=== PATIENT | male | born 1960 | race Caucasian/White ===

== ENCOUNTER 2017-02-27 12:41 | Inpatient (IN) | payer OTHER ==
--- NOTE | ~2017-02-27 | HP ---
History And Physical [place] [id number] [facility] [place]. [address] NAME: DIOR BYNUM : 58 STATUS : ADM IN [facility]#: [id number] AGE: 56 ADM/REG DATE : 02/27/17 MR#: [id number] REPORT SERV DATE: 02/27/17 DICTATED BY: RAFA BOOTH DATE: 02/27/17 REPORT STATUS : Draft TRANSCRIBED BY: MODL DATE: 02/27/17 DATE OF ADMISSION: 02/27/2017 CHIEF COMPLAINT: Weakness and mild confusion. HISTORY OF PRESENT ILLNESS: The patient is a 56-year-old male with past medical history of significant alcohol use up to 36 cans of beer daily who also has history of hypertension, type 2 diabetes non-insulin dependent, who presents after recent discharge from [facility] having medication changes but noted to have progressive and profound weakness requiring help and assistance getting to bed last night and today has still just generalized weakness that has been constant, still currently present. No pain quality, no radiating symptoms. Does have occasional shortness of breath with exertion, but no gross nausea or vomiting. No fever, chills, or diarrhea, has been taking medications and doing as instructed. He has also been trying to decrease his alcohol intake as instructed. There is nothing worsening or relieving the symptoms. Symptoms are still currently present. Symptoms of weakness have been quite pronounced over the last four days with shortness of breath and does report increased swelling in lower extremities. REVIEW OF SYSTEMS: For additional 10-point review of systems; GENERAL: No fevers or chills. EYES: No eye pain but has had mild visual changes. ENT: No sore throat or congestion. NEURO: Does have mild shaking and has also reported mild hallucinations. No headache. SKIN: No rash or bruising. RESPIRATORY: Does have shortness of breath. No cough. CV: No chest pain or palpitations. GI: No nausea or vomiting. : No dysuria, hematuria. MUSCULOSKELETAL: Does have swelling. No myalgias. ENDOCRINE: Does have fatigue, but no polyuria. HEME: No bleeding or bruising. IMMUNOLOGIC: No rhinorrhea. PSYCH: No anxiety but mild confusion although the patient is aware of the hallucinations. PAST MEDICAL HISTORY: Diabetes, non-insulin dependent, navel hernia, hypertension, hyperlipidemia, slip disc. SURGICAL HISTORY: Hernia on the right and appendectomy. FAMILY HISTORY: Stomach and breast cancer mother's side, diabetes. SOCIAL HISTORY: Does use smokeless tobacco. Alcohol down to 12 beers a day as high as 36 beers a day, has been slowly cutting it down. He started drinking at age of 13. ALLERGIES: SULFA. History And Physical [place] [address] [place]. [address] NAME: DIOR BYNUM : 58 STATUS : ADM IN [facility]#: [id number] AGE: 56 ADM/REG DATE : 02/27/17 MR#: [id number] REPORT SERV DATE: 02/27/17 DICTATED BY: RAFA BOOTH DATE: 02/27/17 REPORT STATUS : Draft TRANSCRIBED BY: ANNIKA DATE: 02/27/17 PHYSICAL EXAMINATION: VITAL SIGNS: Blood pressure 119/74, temperature 98.1, pulse 103, respirations 15, and O2 sats 98% on room air. GENERAL: No acute distress but appears generalized weak. Appears definitely older than stated age. EYES: No scleral icterus. EOMI. No nystagmus. ENT: Nares patent. Tongue midline. Moist mucous membranes. RESPIRATORY: Clear to auscultation. No wheezes. CV: Regular Rate. No rubs. Does have bilateral pedal edema. Cap refill less than 2 seconds. GI: Does have central obesity with mild caput medusae very faint, does have umbilical hernia. Mild splenomegaly. Tympanic abdomen with positive fluid wave. : Deferred. MUSCULOSKELETAL: Moves all extremities x4 but does have notable weakness. SKIN: Warm and dry. LYMPH: Does have 2+ bilateral edema. HEME: No bleeding or bruising. 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 CIWA score approximately 16. PSYCH: Calm, pleasant but at times subtle anxiety noted. ALLERGIES: SULFA. MEDICATIONS: Amitriptyline, Bumex, B12, Flexeril, Breo Ellipta, folic acid, Prinivil, lovastatin, Mag-Ox, metformin, Roxicodone, Protonix, Lyrica, Aldactone. DATA: EKG; rate of 101, QTc 459, sinus tachycardia. LABORATORY DATA: CMP: Procalcitonin 0.15. Sodium 135, potassium 4.8, chloride 97, bicarb 25, BUN creatinine 47 and 1.94, glucose 148, calcium 10.1, albumin 3.5, myoglobin 397, CPK 1327, TSH 2.680. Urine drug screen; positive tricyclics, is on amitriptyline. Negative Tylenol, negative alcohol, negative salicylates, lactate 2.5. Urinalysis negative. CBC: WBC 4.8, H and H 12.2 and 34.4, platelets 102, INR 1.2. Ammonia 125. ABG: pH 7.47, pCO2 of 30, pO2 of 75, bicarb 21.6. ASSESSMENT AND PLAN: 1. Rhabdomyolysis. 2. Hepatic encephalopathy, on arrival. 3. Alcohol abuse. 4. Acute kidney injury. 5. Dehydration. 6. Lactic acid elevation. 7. Debility. History And Physical [address] [address] NAME: DIOR BYNUM : 58 STATUS : ADM IN [facility]#: [id number] AGE: 56 ADM/REG DATE : 02/27/17 MR#: [id number] REPORT SERV DATE: 02/27/17 DICTATED BY: RAFA BOOTH DATE: 02/27/17 REPORT STATUS : Draft TRANSCRIBED BY: ANNIKA DATE: 02/27/17 8. Healed rib fractures. PLAN: 1. For rhabdomyolysis, hold diuretics, nephrotoxins, and statins. IV fluids gently. The patient does have what appears to be hepatic congestion or hepatic disease. Hold statins at this time. Monitor CPK, will need physical therapy once out of acute episodes. 2. Hepatic encephalopathy. He does have elevated ammonia to 120 plus, mild asterixis, positive splenomegaly, lactulose discussed with the patient. We will monitor ammonia. 3. Alcohol abuse with DT risk factors, CIWA score 16. DT protocol initiated. Monitor. He does have mild asterixis with hallucinations although the patient aware of these hallucinations and only subtle anxiety. 4. ENRICO. IV fluids. Check lytes. 5. Dehydration, IV fluids. Hold diuretics. 6. Lactic acid. Monitor serially, hold metformin. 7. Debility. PT when appropriate. 8. Healed rib fractures seen on prior x-rays at recent hospitalization. Guarded prognosis including possible escalation to ICU if needed due to multitude of risk factors as above. Discussed with the patient and family who are agreeable and aware of high risk case. DDN/MODL Rafa Booth MD / [id number] CC: Xuan De Dios M.D.
--- NOTE | ~2017-02-27 | DS ---
Discharge Summary [place] [id number] [facility] [place]. [address] NAME: DIOR BYNUM : 58 STATUS : DIS IN PAT#: [id number] AGE: 56 ADM/REG DATE : 02/27/17 MR#: [id number] REPORT SERV DATE: 03/06/17 DICTATED BY: CARLOS MCGINNIS DATE: 03/06/17 REPORT STATUS : Draft TRANSCRIBED BY: MODKailyn DATE: 03/06/17 ADMISSION DATE: 02/27/2017 DISCHARGE DATE: 03/06/2017 ADDENDUM DISCHARGE SUMMARY ADDENDUM Addendum to discharge summary: The patient was supposed to be transferred to [facility]. The patient was waiting for approval from [facility]. Unfortunately, there were some delays regarding his approval. Reassessment of the patient's physical therapy was made. The patient was able to mobilize with a walker at least around through the nurses station without any difficulty/minimal assist. With improvement of his mobility, the patient will be sent home and instructed to use his walker. ROD/ANNIKA Carlos Mcginnis MD / [id number] CC: Carlos Mcginnis MD
--- NOTE | ~2017-02-27 | DS ---
Discharge Summary [facility] [address] [place]. [address] NAME: DIOR BYNUM : 58 STATUS : ADM IN [facility]#: [id number] AGE: 56 ADM/REG DATE : 02/27/17 MR#: [id number] REPORT SERV DATE: 03/05/17 DICTATED BY: CARLOS MCGINNIS DATE: 03/04/17 REPORT STATUS : Draft TRANSCRIBED BY: MODL DATE: 03/04/17 ADMISSION DATE: 02/27/2017 DISCHARGE DATE: 03/04/2017 PROCEDURES DONE: 03/03/2017, chest x-ray: Mild elevation of right hemidiaphragm, appearing slightly more pronounced than prior exam. Likely due to differences in the level of inspiration. There is mild right basilar atelectasis. Otherwise, no acute cardiopulmonary abnormality detected. REASON FOR ADMISSION: Weakness and mild confusion. HISTORY OF HOSPITAL STAY: A 56-year-old white male with past medical history of alcohol abuse with 36 cans of beer daily, hypertension, diabetes type 2, presenting with weakness and mild confusion, unknown duration. The patient was recently at [facility] having progressive weakness. The patient was admitted for further evaluation of the patient's confusion and weakness. It turned out the patient was having hepatic encephalopathy as well as rhabdomyolysis. The patient does admit to having alcohol use. The patient has been advised to quit. Family was at bedside, has been very encouraging and supportive to the patient regarding alcohol use. More importantly, the hepatic encephalopathy also improved with the patient receiving lactulose. The patient had much improved mentation. Since the ammonia level initially was at 87 as well, we decreased down to normal to 29. The patient has been encouraged to continue the lactulose in order to decrease ammonia levels. In addition, the patient's rhabdomyolysis also was much improved. The patient was getting enough IV fluids. The patient's CK is down to normal on discharge at 117. More importantly, from Physical Therapy side, the patient will be sent to [facility] in order to get physical rehab. The patient has been very optimistic that hopefully he can participate more by having more strength to his legs. DISPOSITION: The patient is feeling fine, no complaint. ACTIVITY: As tolerated. DIET: Diabetic. INSTRUCTION UPON DISCHARGE: The patient will follow up with PMD within two to three weeks' time. MEDICATIONS UPON DISCHARGE: 1. Amitriptyline 25 mg p.o. b.i.d. 2. Vitamin B12 at 2500 mcg sublingual daily. 3. Flexeril 10 mg p.o. t.i.d. 4. NovoLog sliding scale level 3. 5. Lactulose 30 mL p.o. b.i.d. 6. Magnesium oxide 400 mg p.o. b.i.d. 7. Protonix 40 mg p.o. daily. 8. Lyrica 75 mg p.o. t.i.d. Discharge Summary [address] [address] NAME: DIOR BYNUM : 58 STATUS : ADM IN [facility]#: [id number] AGE: 56 ADM/REG DATE : 02/27/17 MR#: [id number] REPORT SERV DATE: 03/05/17 DICTATED BY: CARLOS MCGINNIS DATE: 03/04/17 REPORT STATUS : Draft TRANSCRIBED BY: ANNIKA DATE: 03/04/17 9. Roxicodone 5 mg p.o. t.i.d. 10.Aldactone 100 mg p.o. daily. 11.Lisinopril 5 mg p.o. daily. 12.Mevacor 100 mg p.o. q.h.s. 13.Bumex 1 mg p.o. b.i.d. 14.Folic acid 1 mg p.o. daily. 15.Breo Ellipta 100/25 one puff inhaled daily. DIAGNOSES UPON DISCHARGE: 1. Weakness and mild confusion secondary to hepatic encephalopathy. 2. Hepatic encephalopathy secondary to alcohol abuse. 3. Alcohol abuse. 4. Hypertension. 5. Rhabdomyolysis. 6. Diabetes type 2. FBJ/MODL Carlos Mcginnis MD / [id number] CC: Carlos Mcginnis MD
[~2017-02-27 12:41] MED LIST: AMIT25 PO; BREO ELLIPTA INH; BUM1 PO; CYANO1000T SL; FLEX PO; FOLIC PO; GLUCOPHAGE1000 MG PO; L20 PO; LYRICA75 PO; MAGOX4 PO; MEVACOR10 MG PO; MOBIC15 MG PO; NEUR100 PO; OXYCOD PO; PRIN10 PO; PROTONIX PO; SPIR100 PO
[2017-02-27 13:07] LABS: BE (BASE EXCESS) -1.1 MEQ/L (0 +/- 2.5); CARBOXYHEMOGLOBIN 2.1 % (0-3); HCO3 (ACTUAL BICARBONATE) 21.6 MEQ/L (23-27); HEMOBLOGIN CONTENT 12.7 G/DL (14-18); INSTRUMENT SERIAL # 8087; METHEMOGLOBIN 0.3 % (0-3); O2 CONTENT 16.6 VOL% (18-24); PCO2 (CO2 TENSION) 30 MMHG (35-45); PO2 (O2 TENSION) 75 MMHG (79-93); SAMPLE Arterial; pH 7.47 (7.37-7.43)
[2017-02-27 13:08] LABS: ALLENS TEST Pos
[2017-02-27 13:12] LABS: BASOPHILS 0.4 %; BASOPHILS ABSOLUTE 0.02 10/3/uL (0.0-0.16); EOSINOPHILS 1.9 %; EOSINOPHILS ABSOLUTE 0.09 10/3/uL (0.0-0.53); ER CBC TAT 0 Hrs 08 Mins; HEMATOCRIT 34.4 % (40.0-51.0); HEMOGLOBIN 12.2 g/dL (13.6-17.8); LYMPHOCYTES 28.7 %; LYMPHOCYTES ABSOLUTE 1.39 10/3/uL (0.67-4.30); MEAN CORPUSCULAR HEMOGLOB 31.9 pg (26.0-34.0); MEAN CORPUSCULAR VOLUME 89.8 fL (80-100); MEAN PLATELET VOLUME 9.7 fL (9.2-13.0); MONOCYTES 16.7 %; MONOCYTES ABSOLUTE 0.81 10/3/uL (0.21-1.20); NEUTROPHILS 52.3 %; NEUTROPHILS ABSOLUTE 2.53 10/3/uL (2.02-8.40); PLATELET COUNT 102 10/3/uL (150-400); RBC DISTRIBUTION WIDTH 13.8 % (12.0-16.0); RED CELL COUNT 3.83 10/6/uL (4.7-6.1); WHITE BLOOD CELLS 4.8 10/3/uL (4.5-10.5)
[2017-02-27 13:13] LABS: MANUAL DIFF NO %; MEAN CORPUS HGB CONC 35.5 g/dL (32.0-36.0)
[2017-02-27 13:21] LABS: INTERNATIONAL NORMAL RATI 1.2 UNITS (-); PARTIAL THROMBO TIME 35.3 SEC (22.5-37.2)
[2017-02-27 13:27] LABS: ASCORBIC ACID (UR NOT ORDER) NEG (NEG); BILIRUBIN, URINE NEGATIVE (NEG); ER URINALYSIS TAT 0 Hrs 05 Mins; KETONE, URINE NEGATIVE (NEG); LEUKOCYTE ESTERASE(NOT OR NEG (NEG); NITRITE (URINE) NEG (NEG); WBC (NOT ORDERED) (RFLEX) 1 (0-5)
[2017-02-27 13:31] LABS: LACTATE 2.5 MMOL/L (0.3-2.4)
[2017-02-27 13:33] LABS: ACETAMINOPHEN LEVEL (TYLENOL) < 2.0 MCG/ML (10.0-20.0); ALCOHOL < 10 MG/DL (0); SALICYLATE < 1.7 MG/DL (-)
[2017-02-27 13:38] LABS: ALKALINE PHOSPHATASE 110 U/L (45-117); CHLORIDE, SERUM 97 MMOL/L (96-112); CO2 (CARBON DIOXIDE) 25 MMOL/L (24-34); CPK (IF ELEVATED MB BANDS) 1327 U/L (0-200); GLUCOSE, SERUM 148 MG/DL (60-99); SGOT(AST) 90 U/L (5-40); SGPT(ALT) 40 U/L (5-65); SODIUM, SERUM 135 MMOL/L (135-148); TOTAL BILIRUBIN 1.4 MG/DL (0-1.2)
[2017-02-27 13:41] LABS: AMPHETAMINES (NOT ORD) NEG (NEG); BARBITURATES (NOT ORDERED NEG (NEG); BENZODIAZEPINES (NOT ORD) NEG (NEG); CANNABINOIDS (THC) NEG (NEG); COCAINE (NOT ORDERED) NEG (NEG); OPIATES NEG (NEG); PHENCYCLIDINE(PCP) NEG (NEG); TRICYCLICS POS (NEG)
[2017-02-27 13:44] LABS: A/G RATIO 0.7 (0.7-1.9); ALBUMIN 3.5 G/DL (3.5-5.0); BUN (BLOOD UREA NITROGEN) 47 MG/DL (6-23); CALCIUM, SERUM 10.1 MG/DL (8.5-10.4); CREATININE 1.94 MG/DL (0.70-1.30); GFR AFRICAN AMERICAN 43 ML/MIN (>=60); GFR NON AFRICAN AMERICAN 37 ML/MIN (>=60); GLOBULIN 4.9 G/DL (2.5-4.1); POTASSIUM, SERUM 4.8 MMOL/L (3.5-5.3); TOTAL PROTEIN 8.4 G/DL (6.0-8.5)
[2017-02-27 14:08] LABS: CK-MB 3.1 NG/ML
[2017-02-27] MEDS ORDERED: LYRICA75 PO (14:26)
[2017-02-27] MEDS ORDERED: PROTONIX PO (14:26)
[2017-02-27] MEDS ORDERED: SPIR100 PO (14:26)
[2017-02-27] MEDS ORDERED: OXYCOD PO (14:26)
[2017-02-27] MEDS ORDERED: PRIN5 PO (14:26)
[2017-02-27] MEDS ORDERED: GLUCOPHAGE1000 MG PO (14:27)
[2017-02-27] MEDS ORDERED: MEVACOR10 MG PO (14:27)
[2017-02-27] MEDS ORDERED: AMIT25 PO (14:27)
[2017-02-27] MEDS ORDERED: MAGOX4 PO (14:27)
[2017-02-27] MEDS ORDERED: FOLIC PO (14:28)
[2017-02-27] MEDS ORDERED: FLEX PO (14:28)
[2017-02-27] MEDS ORDERED: VITAMIN B-122500 MCG SL (14:28)
[2017-02-27] MEDS ORDERED: BREO ELLIPTA INH (14:28)
[2017-02-27] MEDS ORDERED: BUM1 PO (14:28)
[2017-02-27 14:51] LABS: PROCALCITONIN 0.15 ng/mL (<0.5)
[2017-02-27 15:09] LABS: MYOGLOBIN, SERUM 397 NG/ML (0-85)
[2017-02-27 17:14] LABS: TROPONIN I <0.02 NG/ML (<0.05)
[2017-02-28 05:45] LABS: BASOPHILS 0.5 %; BASOPHILS ABSOLUTE 0.02 10/3/uL (0.0-0.16); EOSINOPHILS 3.4 %; EOSINOPHILS ABSOLUTE 0.13 10/3/uL (0.0-0.53); HEMOGLOBIN 10.6 g/dL (13.6-17.8); IMMATURE GRANULOCYTES 0.3 %; IMMATURE GRANULOCYTES ABSOLUTE 0.01 10/3/uL (0.0-0.11); LYMPHOCYTES 36.2 %; LYMPHOCYTES ABSOLUTE 1.37 10/3/uL (0.67-4.30); MEAN CORPUS HGB CONC 34.9 g/dL (32.0-36.0); MEAN CORPUSCULAR HEMOGLOB 31.3 pg (26.0-34.0); MEAN CORPUSCULAR VOLUME 89.7 fL (80-100); MEAN PLATELET VOLUME 9.6 fL (9.2-13.0); MONOCYTES 17.2 %; MONOCYTES ABSOLUTE 0.65 10/3/uL (0.21-1.20); NEUTROPHILS 42.4 %; PLATELET COUNT 94 10/3/uL (150-400); RBC DISTRIBUTION WIDTH 13.9 % (12.0-16.0); RED CELL COUNT 3.39 10/6/uL (4.7-6.1); WHITE BLOOD CELLS 3.8 10/3/uL (4.5-10.5)
[2017-02-28 05:53] LABS: HEMATOCRIT 30.4 % (40.0-51.0); MANUAL DIFF NO %
[2017-02-28 05:57] LABS: A/G RATIO 0.7 (0.7-1.9); ALBUMIN 3.1 G/DL (3.5-5.0); CHLORIDE, SERUM 103 MMOL/L (96-112); CO2 (CARBON DIOXIDE) 24 MMOL/L (24-34); CPK 730 U/L (0-200); GLOBULIN 4.4 G/DL (2.5-4.1); GLUCOSE, SERUM 128 MG/DL (60-99); MYOGLOBIN, SERUM 168 NG/ML (0-85); POTASSIUM, SERUM 4.3 MMOL/L (3.5-5.3); SGOT(AST) 71 U/L (5-40); SGPT(ALT) 35 U/L (5-65); SODIUM, SERUM 139 MMOL/L (135-148); TOTAL BILIRUBIN 1.5 MG/DL (0-1.2); TOTAL PROTEIN 7.5 G/DL (6.0-8.5); TROPONIN I <0.02 NG/ML (<0.05)
[2017-02-28 06:00] LABS: ALKALINE PHOSPHATASE 93 U/L (45-117); BUN (BLOOD UREA NITROGEN) 34 MG/DL (6-23); CALCIUM, SERUM 9.1 MG/DL (8.5-10.4); CREATININE 1.41 MG/DL (0.70-1.30); GFR AFRICAN AMERICAN 64 ML/MIN (>=60); GFR NON AFRICAN AMERICAN 55 ML/MIN (>=60)
[2017-03-01 06:28] LABS: BASOPHILS 0.7 %; BASOPHILS ABSOLUTE 0.02 10/3/uL (0.0-0.16); EOSINOPHILS 4.4 %; EOSINOPHILS ABSOLUTE 0.13 10/3/uL (0.0-0.53); HEMATOCRIT 32.4 % (40.0-51.0); HEMOGLOBIN 11.2 g/dL (13.6-17.8); IMMATURE GRANULOCYTES 0.3 %; IMMATURE GRANULOCYTES ABSOLUTE 0.01 10/3/uL (0.0-0.11); LYMPHOCYTES 35.7 %; LYMPHOCYTES ABSOLUTE 1.06 10/3/uL (0.67-4.30); MANUAL DIFF NO %; MEAN CORPUS HGB CONC 34.6 g/dL (32.0-36.0); MEAN CORPUSCULAR HEMOGLOB 31.5 pg (26.0-34.0); MEAN CORPUSCULAR VOLUME 91.3 fL (80-100); MEAN PLATELET VOLUME 9.7 fL (9.2-13.0); MONOCYTES 19.2 %; MONOCYTES ABSOLUTE 0.57 10/3/uL (0.21-1.20); NEUTROPHILS 39.7 %; NEUTROPHILS ABSOLUTE 1.18 10/3/uL (2.02-8.40); PLATELET COUNT 100 10/3/uL (150-400); RBC DISTRIBUTION WIDTH 13.5 % (12.0-16.0); RED CELL COUNT 3.55 10/6/uL (4.7-6.1)
[2017-03-01 06:30] LABS: A/G RATIO 0.7 (0.7-1.9); ALBUMIN 3.1 G/DL (3.5-5.0); ALKALINE PHOSPHATASE 116 U/L (45-117); BUN (BLOOD UREA NITROGEN) 20 MG/DL (6-23); CALCIUM, SERUM 9.1 MG/DL (8.5-10.4); CHLORIDE, SERUM 106 MMOL/L (96-112); CO2 (CARBON DIOXIDE) 24 MMOL/L (24-34); CPK 360 U/L (0-200); CREATININE 1.18 MG/DL (0.70-1.30); GFR AFRICAN AMERICAN 79 ML/MIN (>=60); GFR NON AFRICAN AMERICAN 68 ML/MIN (>=60); GLOBULIN 4.7 G/DL (2.5-4.1); GLUCOSE, SERUM 140 MG/DL (60-99); POTASSIUM, SERUM 4.5 MMOL/L (3.5-5.3); SGOT(AST) 72 U/L (5-40); SGPT(ALT) 38 U/L (5-65); SODIUM, SERUM 140 MMOL/L (135-148); TOTAL BILIRUBIN 0.9 MG/DL (0-1.2); TOTAL PROTEIN 7.8 G/DL (6.0-8.5)
[2017-03-02 06:48] LABS: BASOPHILS 0.3 %; BASOPHILS ABSOLUTE 0.01 10/3/uL (0.0-0.16); EOSINOPHILS 3.4 %; HEMATOCRIT 32.9 % (40.0-51.0); HEMOGLOBIN 11.3 g/dL (13.6-17.8); LYMPHOCYTES 38.5 %; LYMPHOCYTES ABSOLUTE 1.12 10/3/uL (0.67-4.30); MEAN CORPUS HGB CONC 34.3 g/dL (32.0-36.0); MEAN CORPUSCULAR VOLUME 90.4 fL (80-100); MEAN PLATELET VOLUME 9.6 fL (9.2-13.0); MONOCYTES 12.7 %; MONOCYTES ABSOLUTE 0.37 10/3/uL (0.21-1.20); NEUTROPHILS 45.1 %; NEUTROPHILS ABSOLUTE 1.31 10/3/uL (2.02-8.40); PLATELET COUNT 98 10/3/uL (150-400); RBC DISTRIBUTION WIDTH 13.5 % (12.0-16.0); RED CELL COUNT 3.64 10/6/uL (4.7-6.1); WHITE BLOOD CELLS 2.9 10/3/uL (4.5-10.5)
[2017-03-02 06:49] LABS: MANUAL DIFF NO %
[2017-03-02 07:02] LABS: A/G RATIO 0.6 (0.7-1.9); ALKALINE PHOSPHATASE 123 U/L (45-117); BUN (BLOOD UREA NITROGEN) 19 MG/DL (6-23); CALCIUM, SERUM 9.2 MG/DL (8.5-10.4); CHLORIDE, SERUM 109 MMOL/L (96-112); CO2 (CARBON DIOXIDE) 23 MMOL/L (24-34); CREATININE 1.21 MG/DL (0.70-1.30); GFR AFRICAN AMERICAN 77 ML/MIN (>=60); GFR NON AFRICAN AMERICAN 66 ML/MIN (>=60); GLOBULIN 4.8 G/DL (2.5-4.1); GLUCOSE, SERUM 177 MG/DL (60-99); POTASSIUM, SERUM 4.2 MMOL/L (3.5-5.3); SGOT(AST) 72 U/L (5-40); SGPT(ALT) 40 U/L (5-65); SODIUM, SERUM 141 MMOL/L (135-148); TOTAL BILIRUBIN 0.8 MG/DL (0-1.2); TOTAL PROTEIN 7.8 G/DL (6.0-8.5)
[2017-03-03 05:33] LABS: BASOPHILS 0.3 %; BASOPHILS ABSOLUTE 0.01 10/3/uL (0.0-0.16); EOSINOPHILS 3.2 %; EOSINOPHILS ABSOLUTE 0.12 10/3/uL (0.0-0.53); HEMATOCRIT 33.1 % (40.0-51.0); HEMOGLOBIN 11.3 g/dL (13.6-17.8); IMMATURE GRANULOCYTES 0.3 %; IMMATURE GRANULOCYTES ABSOLUTE 0.01 10/3/uL (0.0-0.11); LYMPHOCYTES 25.3 %; LYMPHOCYTES ABSOLUTE 0.94 10/3/uL (0.67-4.30); MEAN CORPUS HGB CONC 34.1 g/dL (32.0-36.0); MEAN CORPUSCULAR HEMOGLOB 31.1 pg (26.0-34.0); MEAN CORPUSCULAR VOLUME 91.2 fL (80-100); MEAN PLATELET VOLUME 9.2 fL (9.2-13.0); MONOCYTES 9.7 %; MONOCYTES ABSOLUTE 0.36 10/3/uL (0.21-1.20); NEUTROPHILS 61.2 %; NEUTROPHILS ABSOLUTE 2.27 10/3/uL (2.02-8.40); PLATELET COUNT 101 10/3/uL (150-400); RBC DISTRIBUTION WIDTH 13.6 % (12.0-16.0); RED CELL COUNT 3.63 10/6/uL (4.7-6.1); WHITE BLOOD CELLS 3.7 10/3/uL (4.5-10.5)
[2017-03-03 05:37] LABS: MANUAL DIFF NO %
[2017-03-03 05:47] LABS: A/G RATIO 0.6 (0.7-1.9); BUN (BLOOD UREA NITROGEN) 16 MG/DL (6-23); CALCIUM, SERUM 9.3 MG/DL (8.5-10.4); CHLORIDE, SERUM 110 MMOL/L (96-112); CO2 (CARBON DIOXIDE) 22 MMOL/L (24-34); CREATININE 1.04 MG/DL (0.70-1.30); GFR AFRICAN AMERICAN 92 ML/MIN (>=60); GFR NON AFRICAN AMERICAN 79 ML/MIN (>=60); GLOBULIN 5.1 G/DL (2.5-4.1); GLUCOSE, SERUM 171 MG/DL (60-99); PHOSPHORUS, SERUM 3.3 MG/DL (2.5-4.5); POTASSIUM, SERUM 4.6 MMOL/L (3.5-5.3); SGOT(AST) 69 U/L (5-40); SGPT(ALT) 43 U/L (5-65); SODIUM, SERUM 141 MMOL/L (135-148); TOTAL BILIRUBIN 0.6 MG/DL (0-1.2); TOTAL PROTEIN 8.1 G/DL (6.0-8.5)
[2017-03-03 05:49] LABS: ALKALINE PHOSPHATASE 140 U/L (45-117); CPK 117 U/L (0-200)
[2017-03-04 07:09] LABS: BASOPHILS 0.2 %; BASOPHILS ABSOLUTE 0.01 10/3/uL (0.0-0.16); EOSINOPHILS 2.8 %; EOSINOPHILS ABSOLUTE 0.16 10/3/uL (0.0-0.53); HEMATOCRIT 32.8 % (40.0-51.0); HEMOGLOBIN 11.4 g/dL (13.6-17.8); IMMATURE GRANULOCYTES 0.2 %; IMMATURE GRANULOCYTES ABSOLUTE 0.01 10/3/uL (0.0-0.11); LYMPHOCYTES 17.4 %; LYMPHOCYTES ABSOLUTE 0.99 10/3/uL (0.67-4.30); MEAN CORPUS HGB CONC 34.8 g/dL (32.0-36.0); MEAN CORPUSCULAR HEMOGLOB 31.9 pg (26.0-34.0); MEAN CORPUSCULAR VOLUME 91.9 fL (80-100); MEAN PLATELET VOLUME 9.5 fL (9.2-13.0); MONOCYTES 11.4 %; MONOCYTES ABSOLUTE 0.65 10/3/uL (0.21-1.20); NEUTROPHILS ABSOLUTE 3.86 10/3/uL (2.02-8.40); PLATELET COUNT 98 10/3/uL (150-400); RBC DISTRIBUTION WIDTH 13.9 % (12.0-16.0); RED CELL COUNT 3.57 10/6/uL (4.7-6.1)
[2017-03-04 07:11] LABS: MANUAL DIFF NO %; WHITE BLOOD CELLS 5.7 10/3/uL (4.5-10.5)
[2017-03-04 07:29] LABS: A/G RATIO 0.6 (0.7-1.9); ALBUMIN 3.2 G/DL (3.5-5.0); ALKALINE PHOSPHATASE 118 U/L (45-117); BUN (BLOOD UREA NITROGEN) 14 MG/DL (6-23); CALCIUM, SERUM 9.5 MG/DL (8.5-10.4); CHLORIDE, SERUM 108 MMOL/L (96-112); CO2 (CARBON DIOXIDE) 22 MMOL/L (24-34); CREATININE 1.01 MG/DL (0.70-1.30); GFR AFRICAN AMERICAN 95 ML/MIN (>=60); GFR NON AFRICAN AMERICAN 82 ML/MIN (>=60); GLUCOSE, SERUM 159 MG/DL (60-99); PHOSPHORUS, SERUM 4.1 MG/DL (2.5-4.5); POTASSIUM, SERUM 4.1 MMOL/L (3.5-5.3); SGOT(AST) 73 U/L (5-40); SGPT(ALT) 49 U/L (5-65); SODIUM, SERUM 140 MMOL/L (135-148); TOTAL PROTEIN 8.2 G/DL (6.0-8.5)
[2017-03-06] MEDS ORDERED: GENERLAC PO (15:36)
[2017-03-14] MEDS ORDERED: CONSTULOSE PO (11:45)
== END 2017-03-06 16:29 | DRG 682 ==
LOC: ER 12:41 → 7NO 14:55
PROVIDERS: Hospitalist; Internal Medicine; Student in an Organized Health Care Education/Training Program
DX: N17.9 Acute kidney failure, unspecified (principal); K72.00 Acute and subacute hepatic failure without coma; M62.82 Rhabdomyolysis; K72.90 Hepatic failure, unspecified without coma; F10.10 Alcohol abuse, uncomplicated; E86.0 Dehydration; E66.9 Obesity, unspecified; Z68.34 Body mass index [BMI] 34.0-34.9, adult
CPT/HCPCS: 36600; 71010; 80053; 80305; 80307; 81001; 82140; 82550; 82553; 82805; 82962; 83605; 83735; 83874; 84100; 84145; 84443; 84484; 85025; 85610; 85730; 87040; 93005; 94640; 97110-GP; 97116-GP; 97162-GP; 99285; A9270-GY; J3411